=== PATIENT | female | born 1950 | race Caucasian/White ===

== ENCOUNTER 2017-01-23 08:05 | Outpatient (CLI) | payer MEDICARE, OTHER ==
[2017-01-23 09:05] LABS: eGFR (African) > 60; eGFR (Non-African) > 60
== END 2017-01-23 08:06 ==
LOC: LAB 08:05
PROVIDERS: ATTEND Family Medicine
DX: I10 Essential (primary) hypertension (principal)
CPT/HCPCS: 36415; 80053; 80061

== ENCOUNTER 2017-01-30 07:33 | Outpatient (CLI) | payer MEDICARE, OTHER ==
--- NOTE | 2017-01-30 14:29 | Diagnostic Imaging Report ---
LUIS E CAST [facility] [address] [facility] [address] [id number] Report Submission Date: Jan 30, 2017 10:45:53 AM CDT Patient Study Name: KESHAWN LOZANO Date: Jan 30, 2017 9:14:21 AM CDT Modality Type: CR Gender: F Description: LOWER EXTREMITY : 48 Institution: [facility] Physician: LUIS E CAST Bilateral knees - three views Clinical history: Bilateral knee pain. Findings: Examination of the right knee in AP, lateral and sunrise views demonstrates degenerative changes with narrowing of the joint space worse medially with prominent medial osteophytes. There is mild mild prominence of the tibial spines. The patellofemoral space is narrowed. There is no evident fracture or effusion. Examination of the left knee in AP, lateral and sunrise views demonstrates degenerative changes with narrowing of the joint space worse medially. There are medial osteophytes and prominence of the tibial spines. The patellofemoral space is mildly narrowed. There is no evident effusion or fracture. Impression: 1. Degenerative changes worse on the right. 2. No fracture. Electronically signed on Jan 30, 2017 10:45:53 AM CDT by: John LAI
--- NOTE | 2017-01-30 14:30 | Diagnostic Imaging Report ---
LUIS E CAST [facility] [id number] [facility].[address] [id number] Report Submission Date: Jan 30, 2017 10:44:15 AM CDT Patient Study Name: KESHAWN LOZANO Date: Jan 30, 2017 9:23:33 AM CDT Modality Type: CR Gender: F Description: LOWER EXTREMITY : 48 Institution: [facility] Physician: LUIS E CAST Bilateral feet - three views Clinical history: Bilateral foot pain. Findings: Examination of the right foot in plantar, lateral and oblique views demonstrates degenerative changes with narrowing of the interphalangeal joints and the first metatarsophalangeal joint. Intertarsal and tarsometatarsal joints are mildly narrowed with osteophyte formation. Calcaneal spurs are seen on the lateral view. There is no evident fracture and no lytic or blastic lesion. Examination of the left foot in plantar, lateral and oblique views demonstrates degenerative changes with narrowing of the interphalangeal and first metatarsophalangeal joints. Intertarsal and tarsometatarsal joints are also mildly narrowed with osteophyte formation. Calcaneal spurs are seen on the lateral view. There is no evident fracture and no lytic or blastic lesion. Impression: 1. Degenerative changes bilaterally. 2. No fracture. Electronically signed on Jan 30, 2017 10:44:15 AM CDT by: John LAI
== END 2017-01-30 07:34 ==
LOC: RAD 07:33
PROVIDERS: ATTEND Family Medicine
DX: M25.562 Pain in left knee (principal); M25.561 Pain in right knee; M79.672 Pain in left foot; M79.671 Pain in right foot